=== PATIENT | female | born 1935 | race Caucasian/White ===

== ENCOUNTER → 2018-03-04 | Outpatient (CLI) | payer MEDICARE, BC ==
[~2018-03-04] MED LIST: ALBU90OI INH; AMLO5 PO; ASCO500 PO; ASPI81EC PO; GLUCHON PO; LEVFLO500 PO; LISI5 PO; METO25ER PO; MULVIT PO; OMEG1CAP30 PO; OMEP20ER PO; PRAV40 PO; TOCO400 PO; Zithromax250 MG PO
== END | disposition home or self-care (01) ==
LOC: PLD 07:40 → LAB SHORT 07:40
DX: D48.5 Neoplasm of uncertain behavior of skin (principal)
CPT/HCPCS: 88305

== ENCOUNTER → 2019-07-17 | Outpatient (CLI) | payer MEDICARE, BC ==
[~2019-07-17] MED LIST changes: +FLUT1DIS5 INH; +LOSA25 PO; +TOCO1000 PO
== END | disposition home or self-care (01) ==
LOC: LAB SHORT 07:52 → PLD 07:52
DX: D22.5 Melanocytic nevi of trunk (principal)
CPT/HCPCS: 88305